=== PATIENT | female | born 1970 | race Caucasian/White ===

== ENCOUNTER 2020-10-28 18:19 | Emergency (ER) | payer BC ==
[2020-10-28] MEDS ORDERED: cloNIDine 0.1 MG Tab PO ONE (19:14)
--- NOTE | 2020-10-28 19:21 | EDM.PDOC ---
ED HPI GENERAL MEDICAL PROBLEM - General Chief Complaint: Cardiovascular Problem Stated Complaint: HIGH BP Time Seen by Provider: 10/28/20 18:28 Source of Information: Reports: Patient - History of Present Illness INITIAL COMMENTS - FREE TEXT/NARRATIVE: Elke is a 49 y/o female who comes to the ER to have her Blood pressure checked. 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 She was seen in the clinic about [address] Cortez and her BP was apparently borderline elevated, but she was not started on meds. She has had a dull headache the last few days. No vision changes. She reports that her BPs have been in the 180-200s/100s when she has been checking them. Denies any previous tx for HTN. She is a 1PPD smoker. Left Hip Pain Score (Numeric/FACES): 5 - Related Data Allergies Allergy/AdvReac Type Severity Reaction Status Date / Time amoxicillin Allergy Rash Verified 10/28/20 18:30 Home Meds: Home Meds Escitalopram Oxalate [Lexapro] 20 mg PO DAILY 10/28/20 [History] tiZANidine [Zanaflex] 4 mg PO BID PRN 10/28/20 [History] Past Medical History Musculoskeletal History: Reports: Other (See Below) Other Musculoskeletal History: chronic hip pain - Infectious Disease History Infectious Disease History: Reports: None Social & Family History - Tobacco Use Tobacco Use Status *Q: Current Every Day Tobacco User Years of Tobacco use: 33 Packs/Tins Daily: 1 - Recreational Drug Use Recreational Drug Use: No ED ROS GENERAL - Review of Systems Review Of Systems: See Below Constitutional: Reports: No Symptoms HEENT: Reports: No Symptoms Respiratory: Reports: No Symptoms Cardiovascular: Reports: No Symptoms Endocrine: Reports: No Symptoms GI/Abdominal: Reports: No Symptoms : Reports: No Symptoms Musculoskeletal: Reports: No Symptoms Skin: Reports: No Symptoms Neurological: Reports: Headache Psychiatric: Reports: No Symptoms Hematologic/Lymphatic: Reports: No Symptoms ED EXAM, GENERAL - Physical Exam Exam: See Below Exam Limited By: No Limitations General Appearance: Alert, WD/WN, No Apparent Distress (Obese adult female) Eye Exam: Bilateral Eye: PERRL Ears: Normal External Exam Nose: Normal Inspection Throat/Mouth: Normal Inspection, Normal Lips, Normal Voice Head: Atraumatic, Normocephalic Neck: Normal Inspection, Supple Respiratory/Chest: No Respiratory Distress, Lungs Clear, Chest Non-Tender Cardiovascular: Normal Peripheral Pulses, Regular Rate, Rhythm, No Murmur GI/Abdominal: Normal Bowel Sounds, Soft (Female) Exam: Deferred Rectal (Female) Exam: Deferred Back Exam: Normal Inspection, Full Range of Motion Extremities: Normal Inspection, Normal Range of Motion, Normal Capillary Refill Neurological: Alert, Oriented, CN II-XII Intact, Normal Cognition, No Motor/Sensory Deficits Psychiatric: Normal Affect, Normal Mood Skin Exam: Warm, Dry, Intact, Normal Color Lymphatic: No Adenopathy Course - Vital Signs Text/Narrative:: 1837 The patient was seen by the [employer]. BP on admit was 193/88 and when repeated by [employer] at bedside it was 184/102 and 204/117 respectively. Other than a mild headache she has been essentially sx free with the exception of elevated BPs that she has been checking. She was given Clonidine 0.1mg po in the ER. 1919 RN rechecked BP and reported it 146/67 prior to Clonidine being given. 1950 BP rechecked 176/71. No sx. Will plan to send pt home and have her see her PCP on Friday for HTN med initiation. Patient was given discharge instructions. Her questions were answered and she left the ER in stable condition. Last Recorded V/S: Last Vital Signs Temp 36.4 C 10/28/20 18:31 Pulse 86 10/28/20 18:55 Resp 16 10/28/20 18:31 BP 145/67 H 10/28/20 19:24 Pulse Ox 97 10/28/20 18:31 - Orders/Labs/Meds Meds: Medications Discontinued Medications Generic Name Dose Route Start Last Admin Trade Name Freq PRN Reason Stop Dose Admin Clonidine HCl 0.1 mg 10/28/20 19:14 10/28/20 19:24 Clonidine 0.1 Mg Tab PO 10/28/20 19:15 0.1 mg ONETIME ONE Administration Departure - Departure Time of Disposition: 19:54 Disposition: Home, Self-Care 01 Preliminary Cause of *Q: Sepsis & Multi System Organ Failure Clinical Impression: Tobacco use disorder Hypertension Qualifiers: Hypertension type: unspecified Qualified Code(s): I10 - Essential (primary) hypertension Instructions: Hypertension, Adult Referrals: Mae Cortez DO [Primary Care Provider] - Forms: ED Department Discharge Sepsis Event Note (ED) - Evaluation Sepsis Screening Result: No Definite Risk - Focused Exam Vital Signs: Vital Signs Temp Pulse Resp BP BP Pulse Ox 10/28/20 19:24 145/67 H 10/28/20 18:55 86 189/89 H 10/28/20 18:31 36.4 C 89 16 193/88 H 97 - Assessment/Plan Assessment:: 1)Hypertension-New Dx 2)Tobacco User Plan: -Make an appt to see your PCP on Friday to discuss your blood pressure -Stop smoking immediately or make a plan as to how you will do this. -Return to the ER for any concerns
== END 2020-10-28 20:00 | disposition home or self-care (01) ==
LOC: VM.ED 18:19
DX: I10 Essential (primary) hypertension (principal); Z72.0 Tobacco use; Z88.0 Allergy status to penicillin
CPT/HCPCS: 99283; 99284; A9270

== ENCOUNTER 2021-04-10 13:43 | Emergency (ER) | payer BC ==
--- NOTE | 2021-04-10 14:06 | EDM.PDOC ---
ED HPI GENERAL MEDICAL PROBLEM - General Chief Complaint: Lower Extremity Injury/Pain Stated Complaint: ROLLED ANKLE AT WORK Time Seen by Provider: 04/10/21 13:57 Source of Information: Reports: Patient History Limitations: Reports: No Limitations - History of Present Illness INITIAL COMMENTS - FREE TEXT/NARRATIVE: Patient come into the ED after rolling her left ankle on some uneven pavement/sidewalk. She says she felt something pop. Fears her foot is broken. She did not fall, no syncope complaints. Did not hit her head. No nausea, vomiting, confusion. Otherwise unremarkable. Pain on ambulation and palpation to left foot on lateral aspect. Took ibuprofen FLAT IRONER. Onset: Today Onset Date: 04/10/21 Onset Time: 12:30 Duration: Intermittent Location: Reports: Lower Extremity, Left Quality: Reports: Stabbing Severity: Moderate Improves with: Reports: Medication, Rest Worsens with: Reports: Movement Associated Symptoms: Reports: No Other Symptoms Treatments FLAT IRONER: Reports: NSAIDS Left Feet Pain Score (Numeric/FACES): 9 - Related Data Allergies Allergy/AdvReac Type Severity Reaction Status Date / Time amoxicillin Allergy Rash Verified 04/10/21 13:56 Home Meds: Home Meds Escitalopram Oxalate [Lexapro] 20 mg PO DAILY 10/28/20 [History] tiZANidine [Zanaflex] 4 mg PO BID PRN 10/28/20 [History] Rosuvastatin Calcium 20 mg PO DAILY 04/10/21 [History] lisinopriL [Lisinopril] 40 mg PO DAILY 04/10/21 [History] Past Medical History Musculoskeletal History: Reports: Other (See Below) Other Musculoskeletal History: chronic hip pain - Infectious Disease History Infectious Disease History: Reports: None Review of Systems - Review of Systems Review Of Systems: See Below Constitutional: Reports: No Symptoms Eyes: Reports: No Symptoms Ears: Reports: No Symptoms Nose: Reports: No Symptoms Mouth/Throat: Reports: No Symptoms Respiratory: Reports: No Symptoms Cardiovascular: Reports: No Symptoms GI/Abdominal: Reports: No Symptoms Genitourinary: Reports: No Symptoms Musculoskeletal: Reports: Foot Pain (left lateral aspect) ED EXAM, GENERAL - Physical Exam Exam: See Below Exam Limited By: No Limitations General Appearance: Alert, WD/WN, No Apparent Distress Head: Atraumatic, Normocephalic Neck: Normal Inspection Respiratory/Chest: No Respiratory Distress, Lungs Clear, Normal Breath Sounds Cardiovascular: Normal Peripheral Pulses, Regular Rate, Rhythm, No Murmur Extremities: Other (pain to lateral aspect of distal left foot/metatarsal. No reduced ROM. Minimal edema.) Neurological: Alert, Oriented, CN II-XII Intact, Normal Cognition, Normal Gait, Normal Reflexes, No Motor/Sensory Deficits Skin Exam: Warm, Dry, Intact Lymphatic: No Adenopathy Front/Back Body Diagram: 1 - left lateral pain to foot on palpation. distal 5th metatarsal region. Minimal edema, no ecchymosis Course - Vital Signs Last Recorded V/S: Last Vital Signs Temp 35.8 C L 04/10/21 13:50 Pulse 98 04/10/21 13:50 Resp 16 04/10/21 13:50 BP 121/73 04/10/21 13:50 Pulse Ox 96 04/10/21 13:50 Departure - Departure Time of Disposition: 14:42 Disposition: Home, Self-Care 01 Condition: Good Clinical Impression: Metatarsal stress fracture of left foot - Discharge Information *PRESCRIPTION DRUG MONITORING PROGRAM REVIEWED*: Not Applicable *COPY OF PRESCRIPTION DRUG MONITORING REPORT IN PATIENT NANCY: Not Applicable Instructions: Crutch Use, Adult, [id number], Metatarsal Fracture Forms: ED Department Discharge Additional Instructions: 1. Non-weight bearing 2. Repeat x-ray in 7-10 days with PCP 3. Rest, ice, compress, and elevate the extremity 4. May also try heat after a couple of days 5. Alternate ibuprofen and tylenol for pain relief Sepsis Event Note (ED) - Focused Exam Vital Signs: Vital Signs Temp Pulse Resp BP Pulse Ox 04/10/21 13:50 35.8 C L 98 16 121/73 96 - Problem List Review Problem List Initiated/Reviewed/Updated: Yes - Assessment/Plan Assessment:: old unhealed fracture base of 5th left metatarsal Plan: 1. Non-weight bearing 2. Repeat x-ray in 7-10 days with PCP 3. Rest, ice, compress, and elevate the extremity 4. May also try heat after a couple of days 5. Alternate ibuprofen and tylenol for pain relief
--- NOTE | 2021-04-10 14:25 | CR ---
[id number] RAD/RAD Foot Left 2V EXAM: RAD Foot Left 2V CLINICAL DATA: TRAUMA COMPARISON: No previous similar exam is available. FINDINGS: No new fracture or dislocation is seen. There is an old incompletely healed fracture at the base of the left 5th metatarsal. IMPRESSION: NO NEW FRACTURE OR DISLOCATION Enrique Santacruz MD 04/10/21 [id number] Thank you for allowing us to participate in the care of your patient.
== END 2021-04-10 15:14 | disposition home or self-care (01) ==
LOC: VM.ED 13:43
DX: M84.375A Stress fracture, left foot, initial encounter for fracture (principal); Z88.0 Allergy status to penicillin; Z79.899 Other long term (current) drug therapy; X58.XXXA Exposure to other specified factors, initial encounter
CPT/HCPCS: 73620-LT; 99283